=== PATIENT | male | born 1990 | race Caucasian/White ===

== ENCOUNTER 2017-03-16 15:12 | Emergency (ER) | payer OTHER ==
[~2017-03-16] VITALS: Ht 175.3 cm; Wt 113.6 kg
[~2017-03-16 15:12] MED LIST: AUGM500T34 PO; IBUPOTC PO; NORC1TAB4 PO
[2017-03-16] MEDS ORDERED: METAL LOCK LOOP XX ONE (16:06)
[2017-03-16] MEDS ORDERED: HYDR-3363 PO (16:36)
[2017-03-16 16:39] VITALS: BP 135/89
== END 2017-03-16 16:41 | disposition home or self-care (01) ==
LOC: M ED 15:12
DX: F43.0 Acute stress reaction (principal)

== ENCOUNTER 2017-12-23 22:08 | Emergency (ER) | payer OTHER ==
[2017-12-23] MEDS: GI COCKTAIL 50ML BTL(HYOSCYAMINE/MAALOX/LIDOCAINE VISCOUS)(1:3:1) PO (22:45)
== END 2017-12-24 00:25 | disposition home or self-care (01) ==
LOC: M ED 12-24 00:25
DX: J06.9 Acute upper respiratory infection, unspecified (principal); K21.9 Gastro-esophageal reflux disease without esophagitis; Z79.899 Other long term (current) drug therapy
CPT/HCPCS: 87081

== ENCOUNTER 2017-12-24 12:19 | Emergency (ER) | payer OTHER ==
[2017-12-24] MEDS: ONDANSETRON 4MG/2ML VIAL (J2405) IV (12:52)
[2017-12-24] MEDS: NS 1,000 ML IV ×2 (12:52→13:42)
[2017-12-24] MEDS: MORPHINE 2 MG/ML 1ML SYRINGE (J2270) IV (12:52)
[2017-12-24 13:17] LABS: BASO % 0.2 % (0.0-1.0); EOS % 0.1 % (0.0-3.0); HEMATOCRIT 49.8 % (42.0-52.0); HEMOGLOBIN 16.9 g/dl (13.5-17.5); IMMATURE GRANULOCYTE % 0.9 % (0-3.0); LYMPH # 0.8 10^3/uL (1.5-6.5); LYMPH % 4.1 % (24.0-44.0); MEAN CORPUSCULAR HEMOGLOBIN 28.3 pg (27.0-33.0); MEAN CORPUSCULAR HGB CONC 33.9 g/dl (32.0-36.5); MEAN CORPUSCULAR VOLUME 83.3 fl (80.0-96.0); MONO # 0.3 10^3/uL (0.0-0.8); MONO % 1.5 % (0.0-5.0); NEUTROPHILS # 17.5 10^3/uL (1.8-7.7); NEUTROPHILS % 93.2 % (36.0-66.0); PLATELET COUNT, AUTOMATED 225 10^3/uL (150-450); RED BLOOD COUNT 5.98 10^6/uL (4.30-6.10); RED CELL DISTRIBUTION WIDTH 13.7 % (11.5-14.5); WHITE BLOOD COUNT 18.7 10^3/uL (4.0-10.0)
[2017-12-24 13:34] LABS: ANION GAP 7 MEQ/L (8-16); BLOOD UREA NITROGEN 10 MG/DL (7-18); CARBON DIOXIDE LEVEL 27 MEQ/L (21-32); CHLORIDE LEVEL 105 MEQ/L (98-107); CREATININE FOR GFR 0.99 MG/DL (0.70-1.30); GLOMERULAR FILTRATION RATE > 60.0 (>60); GLUCOSE, FASTING 116 MG/DL (70-100); POTASSIUM SERUM 4.7 MEQ/L (3.5-5.1); SODIUM LEVEL 139 MEQ/L (136-145)
[2017-12-24 13:35] LABS: ALBUMIN 4.5 GM/DL (3.2-5.2); ALBUMIN/GLOBULIN RATIO 1.36 (1.00-1.93); ALKALINE PHOSPHATASE 106 U/L (45-117); ALT/SGPT 56 U/L (12-78); AST/SGOT 25 U/L (7-37); BILIRUBIN,DIRECT 0.3 MG/DL (0.0-0.2); BILIRUBIN,TOTAL 1.4 MG/DL (0.2-1.0); CALCIUM LEVEL 9.7 MG/DL (8.5-10.1); TOTAL PROTEIN 7.8 GM/DL (6.4-8.2)
[2017-12-24 13:38] LABS: LACTIC ACID SEPSIS PROTOCOL 1.6 MMOL/L (0.4-2.0)
[2017-12-24] MEDS: MORPHINE 4 MG/ML 1ML VIAL/SYRINGE (J2270) IV (13:43)
[2017-12-24] MEDS ORDERED: ISOVUE-370 76% 100ML VIAL (Q9967) As Ordered (13:57)
[2017-12-24 13:59] LABS: CK-MB VALUE MASS < 1.0 NG/ML (<3.6); CPK CREATINE PHOSPHOKINASE 113 U/L (39-308); MB/CK RELATIVE INDEX 0.88 (< OR =4); TROPONIN I < 0.02 NG/ML (< 0.10)
== END 2017-12-24 15:25 | disposition home or self-care (01) ==
LOC: M ED 12:19
DX: J02.9 Acute pharyngitis, unspecified (principal); K21.9 Gastro-esophageal reflux disease without esophagitis; K27.9 Peptic ulcer, site unspecified, unspecified as acute or chronic, without hemorrhage or perforation; R10.9 Unspecified abdominal pain; Z79.899 Other long term (current) drug therapy
CPT/HCPCS: J2270

== ENCOUNTER → 2018-01-31 | Outpatient (REF) | payer OTHER ==
[2018-01-31 13:55] LABS: CONTROL LINE HPYORI INT CTR LINE PRESENT; H PYLORI QUALITATIVE IgG NEGATIVE (NEGATIVE)
== END ==
LOC: M LAB REF 13:04
DX: K21.0 Gastro-esophageal reflux disease with esophagitis (principal)

== ENCOUNTER 2018-10-07 01:02 | Emergency (ER) | payer BC, OTHER ==
[~2018-10-07] VITALS: Ht 175.3 cm; Wt 109.1 kg
[~2018-10-07 01:02] MED LIST changes: +CLAR5TAB7 PO; +HYDR-3363 PO; +NORCOTAB PO; +RANI15TA PO; +SUCR1TA PO; +XANA0.25 PO
[2018-10-07] MEDS ORDERED: NEXI40CA PO (01:09)
[2018-10-07 01:51] LABS: INFLUENZA A AMPLIFICATION POSITIVE (NEGATIVE); INFLUENZA B AMPLIFICATION NEGATIVE (NEGATIVE)
[2018-10-07] MEDS ORDERED: OSEL75CA PO (02:12)
[2018-10-07] MEDS ORDERED: ACETAMINOPHEN 325 MG TAB PO ONE (02:30)
[2018-10-07 02:32] VITALS: BP 137/75
--- NOTE | 2018-10-07 08:00 | REP ---
PA and lateral chest: Comparison is five of 2018. The lung garzon are clear. The cardiac size is normal. The nellie, mediastinum, and skeletal structures are unremarkable. Impression: Negative PA and lateral chest. There is no interval change. Electronically Signed by Harry Thomas MD 10/07/2018 07:52 A
== END 2018-10-07 02:34 | disposition home or self-care (01) ==
LOC: M ED 01:02
DX: B34.9 Viral infection, unspecified (principal); J09.X2 Influenza due to identified novel influenza A virus with other respiratory manifestations; Z79.899 Other long term (current) drug therapy

== ENCOUNTER 2019-04-03 03:43 | Emergency (ER) | payer BC ==
[~2019-04-03] VITALS: Ht 177.8 cm; Wt 104.5 kg
[~2019-04-03 03:43] MED LIST changes: +HYDR-3715 PO; +NEXI40CA PO; -NORC1TAB4 PO; +NORC1TAB7 PO; -NORCOTAB PO; +OSEL75CA PO
[2019-04-03] MEDS ORDERED: SILVER NITRATE APPLICATOR As Ordered ONE (04:55)
[2019-04-03] MEDS ORDERED: KETOROLAC 30 MG/ML VIAL (J1885) IM ONE (06:30)
[2019-04-03] MEDS ORDERED: LIDOCAINE 5% (LIDODERM) PATCH TD ONE (06:30)
[2019-04-03] MEDS ORDERED: ACETAMINOPHEN 500 MG TAB PO ONE (06:30)
--- NOTE | 2019-04-03 08:16 | REPVR ---
EXAM: CT Lumbar Spine Without Contrast EXAM DATE/TIME: 04/03/2019 6:20 AM CLINICAL HISTORY: 29 years old, male; Low back pain; Additional Info: chronic back pain with radiculopathy TECHNIQUE: Imaging protocol: Computed tomography images of the lumbar spine without contrast. Coronal and sagittal reformatted images were created and reviewed. Radiation optimization: All CT scans at this facility use at least one of these dose optimization techniques: automated exposure control; mA and/or kV adjustment per patient size (includes targeted exams where dose is matched to clinical indication); or iterative reconstruction. COMPARISON: No relevant prior studies available. FINDINGS: Limitations: Examination is limited by body habitus. Vertebrae: No acute fracture. Normal alignment. Rudimentary ribs at T12. Incidental partial sacralization of the L5 vertebral body. Left anterolateral paravertebral ossification at L4-L5. L1-L2: No disc herniation. No spinal stenosis. No neural foraminal narrowing. L2-L3: No disc herniation. No spinal stenosis. No neural foraminal narrowing. L3-L4: No disc herniation. No spinal stenosis. No neural foraminal narrowing. L4-L5: No disc herniation. No spinal stenosis. No neural foraminal narrowing. L5-S1: No disc herniation. No spinal stenosis. No neural foraminal narrowing. Soft tissues: Unremarkable. IMPRESSION: 1. No acute fracture. 2. Incidental findings as described. Electronically signed by: Shwetha Pryor On 04/03/2019 08:16:02 AM
[2019-04-03] MEDS ORDERED: CYCL10TA PO (08:32)
[2019-04-03] MEDS ORDERED: IBUP80TA PO (08:33)
[2019-04-03 09:00] VITALS: BP 128/78
[2019-04-03] MEDS ORDERED: **NOTE PATIENT COMMENT** MISC XX SCH (21:00)
== END 2019-04-03 09:05 | disposition home or self-care (01) ==
LOC: M ED 03:43
DX: M54.5 Low back pain (principal); G89.29 Other chronic pain; K21.9 Gastro-esophageal reflux disease without esophagitis; F41.9 Anxiety disorder, unspecified; F90.9 Attention-deficit hyperactivity disorder, unspecified type; K27.9 Peptic ulcer, site unspecified, unspecified as acute or chronic, without hemorrhage or perforation; Z87.442 Personal history of urinary calculi; Z79.899 Other long term (current) drug therapy
CPT/HCPCS: 72131; 96372; 99283; J1885

== ENCOUNTER 2019-04-10 17:51 | Emergency (ER) | payer BC ==
[~2019-04-10] VITALS: Ht 177.8 cm; Wt 108.6 kg
[~2019-04-10 17:51] MED LIST changes: +CYCL10TA PO; +IBUP80TA PO
[2019-04-10 17:52] VITALS: BP 145/83
[2019-04-10] MEDS ORDERED: DIAZ5TAB (17:58)
[2019-04-10] MEDS ORDERED: METH4PACK (17:58)
[2019-04-10] MEDS ORDERED: LIDO1PAD (17:58)
== END 2019-04-10 18:46 | disposition left against medical advice (07) ==
LOC: M ED 17:51
DX: Z53.21 Procedure and treatment not carried out due to patient leaving prior to being seen by health care provider (principal)

== ENCOUNTER → 2019-12-24 | Outpatient (CLI) | payer BC ==
[~2019-12-24] MED LIST changes: +CYCL-707 PO; -CYCL10TA PO; +DIAZ5TAB; +LIDO1PAD; +METH4PACK
--- NOTE | 2019-12-24 19:37 | REP ---
Clinical: Pain centered at the fifth metatarsal area Technique: AP, lateral, bilateral oblique views right foot . Findings: The osseous structures and joint spaces are intact and normal. There is no evidence for acute fracture or dislocation. Surrounding soft tissues are unremarkable. No subcutaneous emphysema or radiodense foreign body. Impression: Age-appropriate right foot examination. No acute fracture or dislocation. Electronically Signed by René Wolf MD 12/24/2019 07:28 P
== END ==
LOC: M WUC 09:30
PROVIDERS: ATTEND Physician Assistant
DX: M79.671 Pain in right foot (principal)

== ENCOUNTER → 2020-07-21 | Outpatient (CLI) | payer SELFPAY | LOC: M LABSMTC 19:23 | PROVIDERS: ATTEND Pediatrics | DX: Z11.59 Encounter for screening for other viral diseases (principal) ==

== ENCOUNTER 2020-07-25 10:07 | Emergency (ER) | payer BC ==
[~2020-07-25] VITALS: Ht 177.8 cm; Wt 107.9 kg
[2020-07-25] MEDS ORDERED: COMBIVENT RESPIMAT 100-20MCG INHALER 4GM INH ONE (11:30)
[2020-07-25] MEDS ORDERED: ACETAMINOPHEN TAB 650MG DOSE (2X325MG) PO ONE (11:30)
--- NOTE | 2020-07-25 11:44 | REP ---
INDICATION: DYSPNEA/COUGH. COMPARISON: Comparison chest x-ray October 07, 2018. TECHNIQUE: Portable upright AP chest radiograph. FINDINGS: The lungs are well inflated and free of infiltrate. Pleural angles are sharp. Heart size is normal. Pulmonary vasculature is not increased. Monitoring electrodes are seen. IMPRESSION: No active disease. <Electronically signed by Ky Pichardo > 07/25/20 [id number]
[2020-07-25 11:51] LABS: VENOUS BASE EXCESS -0.7 (-2.0-2.0); VENOUS HCO3 28.6 MEQ/L (23.0-27.0); VENOUS O2 SATURATION 61.7 % (60.0-80.0); VENOUS PARTIAL PRESSURE CO2 65.3 mmHg (38.0-50.0); VENOUS PARTIAL PRESSURE O2 35.1 mmHg (30.0-50.0); VENOUS STANDARD HCO3 22.7 MEQ/L; VENOUS TOTAL CO2 30.6 MEQ/L (24.0-28.0)
[2020-07-25 11:58] LABS: BASO # 0.1 10^3/uL (0.0-0.2); EOS # 0.1 10^3/uL (0.0-0.5); EOS % 0.7 % (0.0-3.0); HEMATOCRIT 52.1 % (42.0-52.0); HEMOGLOBIN 17.4 g/dl (13.5-17.5); LYMPH # 1.5 10^3/uL (1.5-5.0); LYMPH % 21.4 % (24.0-44.0); MEAN CORPUSCULAR HEMOGLOBIN 27.9 pg (27.0-33.0); MEAN CORPUSCULAR HGB CONC 33.4 g/dl (32.0-36.5); MEAN CORPUSCULAR VOLUME 83.6 fl (80.0-96.0); MONO # 0.6 10^3/uL (0.0-0.8); NEUTROPHILS # 4.7 10^3/uL (1.5-8.5); NEUTROPHILS % 66.3 % (36.0-66.0); PLATELET COUNT, AUTOMATED 225 10^3/uL (150-450); RED BLOOD COUNT 6.23 10^6/uL (4.30-6.10)
[2020-07-25] MEDS ORDERED: COMBAER6 INH (11:58)
[2020-07-25] MEDS ORDERED: PROAAER10 INH (11:58)
[2020-07-25 12:29] LABS: BLOOD UREA NITROGEN 15 MG/DL (7-18); CALCIUM LEVEL 9.4 MG/DL (8.5-10.1); CARBON DIOXIDE LEVEL 29 MEQ/L (21-32); CHLORIDE LEVEL 106 MEQ/L (98-107); CREATININE FOR GFR 1.02 MG/DL (0.70-1.30); GLOMERULAR FILTRATION RATE > 60.0 (>60); GLUCOSE, FASTING 84 MG/DL (70-100); POTASSIUM SERUM 4.5 MEQ/L (3.5-5.1); SODIUM LEVEL 137 MEQ/L (136-145)
[2020-07-25 12:32] VITALS: BP 147/71
== END 2020-07-25 12:34 | disposition home or self-care (01) ==
LOC: M ED 10:07
DX: B34.9 Viral infection, unspecified (principal); R51.9 Headache, unspecified; Z20.828 Contact with and (suspected) exposure to other viral communicable diseases; F17.200 Nicotine dependence, unspecified, uncomplicated

== ENCOUNTER 2021-07-16 16:03 | Emergency (ER) | payer BC ==
[~2021-07-16] VITALS: Ht 177.8 cm; Wt 116.0 kg
[~2021-07-16 16:03] MED LIST changes: +COMBAER6 INH; +PROAAER10 INH
[2021-07-16 16:08] VITALS: BP 145/90
[2021-07-16] MEDS ORDERED: AZIT-12 (16:13)
--- OUTSIDE RECORDS SUMMARY | 2021-07-16 16:15 | CCD ---
Author Author [facility] Organization [facility] Address Unknown Phone Unavailable Care Team Providers Care [employer] Consultant Name Role Phone Maring, Ayush PA Unavailable Unavailable Maring, Ayush PA Unavailable Unavailable Maring, Ayush PA Unavailable Unavailable Maring, Ayush PA Unavailable Unavailable Maring, Ayush PA Unavailable Unavailable Maring, Ayush PA Unavailable Unavailable Maring, Ayush PA Unavailable Unavailable Maring, Ayush PA Unavailable Unavailable Maring, Ayush PA Unavailable Unavailable Maring, Ayush PA Unavailable Unavailable Maring, Ayush PA Unavailable Unavailable Maring, Ayush PA Unavailable Unavailable Maring, Ayush PA Unavailable Unavailable Maring, Ayush PA Unavailable Unavailable Maring, Ayush PA Unavailable Unavailable Maring, Ayush PA Unavailable Unavailable Sarah Yancey PA-C Unavailable Unavailable Sarah Yancey PA-C Unavailable Unavailable Sarah Yancey PA-C Unavailable Unavailable Sarah Yancey PA-C Unavailable Unavailable Yancey, M Christopher PA-C Unavailable Unavailable Yancey, M Christopher PA-C Unavailable Unavailable Yancey, M Christopher PA-C Unavailable Unavailable Yancey, M Christopher PA-C Unavailable Unavailable Yancey, M Christopher PA-C Unavailable Unavailable Yancey, M Christopher PA-C Unavailable Unavailable Yancey, M Christopher PA-C Unavailable Unavailable Yancey, M Christopher PA-C Unavailable Unavailable Yancey, M Christopher PA-C Unavailable Unavailable Yancey, M Christopher PA-C Unavailable Unavailable Yancey, M Christopher PA-C Unavailable Unavailable Yancey, M Christopher PA-C Unavailable Unavailable Yancey, M Christopher PA-C Unavailable Unavailable Yancey, M Christopher PA-C Unavailable Unavailable Yancey, M Christopher PA-C Unavailable Unavailable Yancey, M Christopher PA-C Unavailable Unavailable Yancey, M Christopher PA-C Unavailable Unavailable Yancey, M Christopher PA-C Unavailable Unavailable Yancey, M Christopher PA-C Unavailable Unavailable Yancey, M Christopher PA-C Unavailable Unavailable Yancey, M Christopher PA-C Unavailable Unavailable Yancey, M Christopher PA-C Unavailable Unavailable Re-disclosure Warning The records that you are about to access may contain information from federally-assisted alcohol or drug abuse programs. If such information is present, then the following federally mandated warning applies: This information has been disclosed to you from records protected by federal confidentiality rules (42 CFR part 2). The federal rules prohibit you from making any further disclosure of this information unless further disclosure is expressly permitted by the written consent of the person to whom it pertains or as otherwise permitted by 42 CFR part 2. A general authorization for the release of medical or other information is NOT sufficient for this purpose. The Federal rules restrict any use of the information to criminally investigate or prosecute any alcohol or drug abuse patient.The records that you are about to access may contain highly sensitive health information, the redisclosure of which is protected by Article 27-F of the [place] State Public Health law. If you continue you may have access to information: Regarding HIV / AIDS; Provided by facilities licensed or operated by the [facility] Office of Mental Health; or Provided by the [facility] Office for People With Developmental Disabilities. If such information is present, then the following [facility] mandated warning applies: This information has been disclosed to you from confidential records which are protected by state law. State law prohibits you from making any further disclosure of this information without the specific written consent of the person to whom it pertains, or as otherwise permitted by law. Any unauthorized further disclosure in violation of state law may result in a fine or longterm sentence or both. A general authorization for the release of medical or other information is NOT sufficient authorization for further disc losure. Family History Family Member Name Family Member Gender Family Member Status Date o f Status Description Data Source(s) Unknown Unknown Problem [facility] ([facility] MGM Encounters Encounter Providers Location Date Indications Data Source(s ) Outpatient Attender: Quincy Yancey PA-C 07/12/2021 07:06:50 AM EST - 07/12/2021 08:00:21 AM EST [facility] ([facility]) Outpatient Attender: Ayush MELARA 11/10/19 08:37:43 AM EDT - 11/09/2020 09:09:15 AM EDT [facility] ([facility] ) Immunizations Vaccine Date Status Description Data Source(s) COVID-19 VACCINE Yehuda 12/27/2020 12:00:00 AM EDT completed [facility] Vaccine Series Complete: YESThis Data wa s Submitted to [facility] Via [employer] [facility]. Medications Medication Brand Name Start Date Product Form Dose Route Admi nistrative Instructions Pharmacy Instructions Status Indications Reaction Description Data Source(s) 40 mg 11/09/2020 12:00:00 AM EDT capsule,delayed release (DR/EC) 30 TAKE ONE CAPSULE BY MOUTH ONCE DAILY EVERY MORNING TAKE ONE CAPSULE BY MOUTH ONCE DAILY EVERY MORNING SOLD: 11/09/2020 [facility] 20-100 mcg/actuation 07/25/2020 12:00:00 AM EST mist 8 INHALE ONE PUFF BY MOUTH THREE TIMES A DAY INHALE ONE PUFF BY MOUTH THREE TIMES A DAY SOLD: 07/25/2020 [facility] 90 mcg/actuation 07/25/2020 12:00:00 AM EST HFA aerosol inha ler 8 INHALE 2 PUFFS BY MOUTH EVERY 4-6 HOURS NEEDED FOR WHEEZING INHALE 2 PUFFS BY MOUTH EVERY 4-6 HOURS NEEDED FOR WHEEZING SOLD: 07/25/2020 [facility] Insurance Providers Payer name Policy type / Coverage type Policy ID Covered libertarian ID Covered libertarian's relationship to franklin Policy [place] Plan Information [employer] (pr) Medigap Part B [id number] Family Dependent [id number] [facility]) Workers Compensation [id number] Self [id number] [facility] Workers Compensation [id number] Self [id number] [facility] Workers Compensation [id number] Self [id number] [place] Trad/MX Medigap Part B [id number] Self [id number] BS [place] Trad/MX Commercial [id number] Self 332 BS [facility] Medigap Part B [id number] T [id number] POM[employer] [id number] Chi [id number] POMCO [id number] Chi [id number] Umr (pr) Commercial [id number] Self [id number] Blue Cross Blue Shield P [id number] SELF [id number] BS Agustin Trad/MX Commercial [id number] Self [id number] [employer] Blue [employer] and Blue Shield [place] Blue Cross/B lue Shield [id number] Self [id number] [facility] 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 Family Dependent [id number] [employer] Ppo Commercial [id number] Family Dependent [id number] [employer] Ppo Commercial [id number] Family Dependent [id number] [employer] Ppo Commercial [id number] Family Dependent [id number] [employer] (pr) Commercial [id number] Family Dependent [place] Ppo Commercial [id number] Family Dependent 91 0 [employer] PPO O [id number] S [id number] [employer] Commercial [id number] Family Dependent BCBS [place] PPO 302/307 [id number] EXCELL[place] BCBS P [id number] C [place] [id number] BCBS [place]AT[place] PPO 302/307 [id number] SP [id number] P UNAVAILABLE UNAVAILA BLE EXCELLUS BCBS B [id number] S [id number] [id number] SELF PAY ONLY [id number] SP [id number] EXCELLUS BCBS B [id number] C VYA [id number] BCBS [place] WATN PPO 302/307 [id number] SP [id number] [facility] [id number] MO2 [id number] [facility] [id number] Family Dependent [id number] Umr (pr) Commercial [id number] Family Dependent [id number] [employer] (pr) [facility] Part B [id number] BS [place] Medigap Part B [id number] Self T [id number] [employer]/Umr (Old) Commercial [id number] Family Dependent [id number] POMCO [id number] MO2 [id number] [employer] (pr) Commercial [id number] [employer] Commercial [id number] Family Dependent [id number] [employer] Commercial [id number] Family Dependent [id number] Problems, Conditions, and Diagnoses No Information Surgeries/Procedures No Information Results ID Date Data Source [id number] 07/14[facility] 12:00:00 [facility] Value Range Interpretation Code Description Data Katelyn rce(s) Supporting Document(s) SARS-CoV2 Rapid Antigen Positive [facility] This lab was ordered by [facility] and reported by [facility]. ID Date Data Source [id number] 11/10/2020 12:00:00 AM EDT [facility] Name Value Range Interpretation Code Description Data Katelyn rce(s) Supporting Document(s) SARS-CoV2 Rapid Antigen Negative [facility] This lab was ordered by [facility] and reported by [facility]. ID Date Data Source [id number] 07/25/2020 11:35:00 AM EST [facility] ([facility]) Name Value Range Interpretation Code Description Data Katelyn rce(s) Supporting Document(s) Venous PH 7.260 units 7.330-7.430 [facility] ([facility]) Venous Partial Pressure Co2 65.3 mmHg 38.0-50.0 [facility] ([facility]) Venous Partial Pressure O2 35.1 mmHg 30.0-50.0 [facility] ([facility]) Venous Base Excess -0.7 [facility] ([facility]) Venous Hco3 28.6 meq/L 23.0-27.0 [facility] ([facility]) Venous Total Co2 30.6 meq/L 24.0-28.0 [facility] Venous O2 Saturation 61.7 % 60.0-80.0 [facility] ([facility]) Venous Standard Hco3 22.7 meq/L [facility] ( [facility]) ID Date Data Source [id number] 07/25/2020 11:17:00 AM EST [facility] ([facility]) Name Value Range Interpretation Code Description Data Katelyn rce(s) Supporting Document(s) Blood Urea Nitrogen 15 mg/dL 7-18 [facility] ([facility]) Creatinine For GFR 1.02 mg/dL 0.70-1.30 [facility] ([facility]) Glucose, Fasting 84 mg/dL 70-100 [facility] ([facility]) Glomerular Filtration Rate Laboratory test result [facility] <content>Units are mL/min/1.73 m2</content>
<content></content>
<content>Chronic Kidney Disease Staging per NKF:</content>
<content></content>
<content>Stage I & II GFR >=60 Normal to Mildly Decreased</content>
<content>Stage III GFR 30-59 Moderately Decreased</content>
<content>Stage IV GFR 15-29 Severely Decreased</content>
<content>Stage V GFR <15 Very Little GFR Left</content>
<content>ESRD GFR <15 on CONFERENCE AND EVENT ORGANISER</content>
<content></content> Sodium Level 137 meq/L 136-145 [facility] ([facility]) Potassium Serum 4.5 meq/L 3.5-5.1 [facility] Anion Gap 2 meq/L 8-16 [facility]) Chloride Level 106 meq/L 98-107 [facility] ([facility]) Carbon Dioxide Level 29 meq/L 21-32 [facility] ( [facility] Calcium Level 9.4 mg/dL 8.5-10.1 [facility] ([facility]) ID Date Data Source [id number] 07/25/2020 11:17:00 AM EST [facility] ([facility]) Name Value Range Interpretation Code Description Data Katelyn rce(s) Supporting Document(s) White Blood Count 7.0 10 4.0-10.0 [facility] ([facility]) Red Blood Count 6.23 10 4.30-6.10 [facility] ([facility]) Hematocrit 52.1 % 42.0-52.0 [facility] [facility]) Hemoglobin 17.4 g/dL 13.5-17.5 [facility] [facility] Mean Corpuscular Hemoglobin 27.9 pg 27.0-33.0 IA DENT ([facility]) Mean Corpuscular HGB Conc 33.4 g/dL 32.0-36.5 MEDE NT ([facility]) Mean Corpuscular Volume 83.6 fl 80.0-96.0 [facility] ([facility]) Platelet Count, Automated 225 10 150-450 [facility] NT ([facility]) Neutrophils % 66.3 % 36.0-66.0 [facility] ([facility]) Red Cell Distribution Width 13.2 % 11.5-14.5 IA DENT ([facility]) Eos % 0.7 % 0.0-3.0 [facility]) [place] % 9.0 % 0.0-5.0 [facility] Lymph % 21.4 % 24.0-44.0 [facility]) Baso % 1.0 % 0.0-1.0 [facility]) Nucleated Red Blood Cell % 0.0 % 0-0 MED ENT ([facility]) Immature Granulocyte % 1.6 % 0-3.0 [facility] ([facility]) Neutrophils # 4.7 10 1.5-8.5 [facility] ([facility]) Lymph # 1.5 10 1.5-5.0 [facility]) [place] # 0.6 10 0.0-0.8 [facility]) Eos # 0.1 10 0.0-0.5 [facility]) Baso # 0.1 10 0.0-0.2 [facility]) ID Date Data Source [id number] 07/25/2020 12:00:00 AM EST [facility] Name Value Range Interpretation Code Description Data Katelyn rce(s) Supporting Document(s) SARS coronavirus 2 RNA [Presence] in Res piratory specimen by RAVI with probe detection [facility] This lab was ordered by [facility] and reported by [employer]. ID Date Data Source [id number] 07/21/2020 12:00:00 AM EST [facility] Name Value Range Interpretation Code Description Data Katelyn rce(s) Supporting Document(s) 2019-nCoV RNA XXX RAVI+probe-Imp [facility] This lab was ordered by [facility] and reported by [facility]. Procedure Social History No Information
[2021-07-16 17:33] VITALS: O2SAT 98
[2021-07-16] MEDS ORDERED: GI COCKTAIL 50ML BTL(HYOSCYAMINE/MAALOX/LIDOCAINE VISCOUS)(1:3:1) PO ONE (17:45)
--- OUTSIDE RECORDS SUMMARY | 2021-07-16 19:23 | CCD ---
Author Author [facility] Organization [facility] Address Unknown Phone Unavailable Care Team Providers Care E Learning Specialist Name Role Phone Maring, Ayush PA Unavailable [...] Unavailable Unavailable Sarah Yancey PA-C Unavailable Unavailable aSrah Yancey PA-C Unavailable Unavailable Yancey, M Christopher [...] is protected by Article 27-F of the [place] State Public Health law. If you continue you may have access to information: Regarding HIV / AIDS; Provided by facilities licensed or operated by the [facility] Office of Mental Health; or Provided by the [facility] Office for People With Developmental Disabilities. If such information is present, then the following [facility] mandated warning applies: This information [...] law may result in a fine or skilled nursing sentence or both. A general authorization for [...] EST - 07/12/2021 08:00:21 AM EST [facility] ([facility]) Outpatient Attender: Ayush MELARA 11/10/19 08:37:43 AM EDT - 11/09/2020 09:09:15 AM EDT [facility] ([facility] ) Immunizations Vaccine Date Status Description Data Source(s) COVID-19 VACCINE Yehuda 12/27/2020 12:00:00 AM EDT completed [facility] Vaccine Series Complete: YESThis Data wa s Submitted to [facility] Via [employer]. Medications Medication Brand Name Start Date Product [...] type / Coverage type Policy ID Covered constitution party ID Covered constitution party's relationship to franklin Policy [place] Plan Information [employer] (pr) Medigap Part B [id number] Family Dependent [id number] [facility]) Workers Compensation [id number] Self [id number] [facility] Workers Compensation [id number] Self [id number] [facility] Workers Compensation [id number] Self [id number] BS [place] Trad/MX Medigap Part B [id number] Self [id number] BS [place]oa Trad/MX Commercial [id number] Self 332 BS [facility] Medigap Part B [id number] T [id number] POMCO [id number] Chi [id number] POMCO [id number] Chi [id number] Umr (pr) Commercial [id number] Self [id number] Blue Cross Blue Shield P [id number] SELF [id number] BS Agustin Trad/MX Commercial [id number] Self [id number] [employer] and Blue [employer] - [place] Blue Cross/B lue Shield [id number] Self [id number] [facility] 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 [id number] Family Dependent [id number] [employer] Ppo Commercial [id number] [id number] Family Dependent [id number] [employer] Ppo Commercial [id number] [id number] Family Dependent [id number] [employer] Ppo Commercial [id number] [id number] Family Dependent [id number] [employer] (pr) Commercial [id number] Family Dependent [place] Ppo Commercial [id number] Family Dependent 91 0 POMCO PPO O [id number] S [id number] [employer] Commercial [id number] Family Dependent BCBS [place] PPO 302/307 [id number] [id number] [employer]CE[place] BCBS P [id number] [place] [id number] BCBS [place] PPO 302/307 [id number] SP [id number] P UNAVAILABLE UNAVAILA BLE [employer]CELLUS BCBS B [id number] S [id number] [id number] SELF PAY ONLY [id number] SP [id number] EXCELLUS BCBS B [id number] C VYA [id number] BCBS [place] PPO 302/307 [id number] SP [id number] [facility] [id number] MO2 [id number] Pom[employer]/Umr (Old) [facility] Part B [id number] Family Dependent [id number] Umr (pr) Commercial [id number] Family Dependent [id number] [place] (pr) [facility] Part B [id number] 55.0 [id number] BS [place] Medigap Part B [id number] Self T [id number] Pom[employer]/Umr (Old) Commercial [id number] [id number] [id number] Family Dependent [id number] POMCO [id number] MO2 [id number] [employer] (pr) Commercial [id number] [employer] Commercial [id number] [id number] Family Dependent [id number] [employer] Commercial [id number] [id number] [id number] Family Dependent [id number] Problems, Conditions, and Diagnoses No Information Surgeries/Procedures No Information Results ID Date Data Source [id number] 07/14/2021 12:00:00 AM EST [facility] Name Value Range Interpretation Code Description Data Katelyn rce(s) Supporting Document(s) SARS-CoV2 Rapid Antigen Positive [facility] This lab was ordered by [facility] and reported by [facility]. ID Date Data Source [id number] 11/10/2020 12:00:00 AM EDT [facility] Name Value Range Interpretation Code Description Data Katelyn rce(s) Supporting Document(s) SARS-CoV2 Rapid Antigen Negative [facility] This lab was ordered by [facility] and reported by [facility]. ID Date Data Source [id number] 07/25/2020 11:35:00 AM EST [facility] ([facility]) Name Value Range Interpretation Code Description Data Katelyn rce(s) Supporting Document(s) Venous PH 7.260 units 7.330-7.430 [facility] ([facility]) Venous Partial Pressure Co2 65.3 mmHg 38.0-50.0 [facility] ([facility]) Venous Partial Pressure O2 35.1 mmHg 30.0-50.0 [facility] ([facility]) Venous Base Excess -0.7 [facility] ([facility]) Venous Hco3 28.6 meq/L 23.0-27.0 [facility] ([facility]) Venous Total Co2 30.6 meq/L 24.0-28.0 [facility] Venous O2 Saturation 61.7 % 60.0-80.0 [facility] ([facility]) Venous Standard Hco3 22.7 meq/L [facility] ( [facility]) ID Date Data Source [id number] 07/25/2020 11:17:00 AM EST [facility] ([facility]) Name Value Range Interpretation Code Description Data Katelyn rce(s) Supporting Document(s) Blood Urea Nitrogen 15 mg/dL 7-18 [facility] ([facility]) Creatinine For GFR 1.02 mg/dL 0.70-1.30 [facility] ([facility]) Glucose, Fasting 84 mg/dL 70-100 [facility] ([facility]) Glomerular Filtration Rate Laboratory test result [facility] <content>Units are mL/min/1.73 m2</content>
<content></content>
<content>Chronic Kidney Disease Staging per NKF:</content>
<content></content>
<content>Stage I & II GFR >=60 Normal to Mildly Decreased</content>
<content>Stage III GFR 30-59 Moderately Decreased</content>
<content>Stage IV GFR 15-29 Severely Decreased</content>
<content>Stage V GFR <15 Very Little GFR Left</content>
<content>ESRD GFR <15 on C D STRIPPER</content>
<content></content> Sodium Level 137 meq/L 136-145 [facility] ([facility]) Potassium Serum 4.5 meq/L 3.5-5.1 [facility] Anion Gap 2 meq/L 8-16 [facility] ([facility]) Chloride Level 106 meq/L 98-107 [facility] ([facility]) Carbon Dioxide Level 29 meq/L 21-32 [facility] Calcium Level 9.4 mg/dL 8.5-10.1 [facility] ([facility]) ID Date Data Source [id number] 07/25/2020 11:17:00 AM EST [facility] ([facility]) Name Value Range Interpretation Code Description Data Katelyn rce(s) Supporting Document(s) White Blood Count 7.0 10 4.0-10.0 [facility] ([facility]) Red Blood Count 6.23 10 4.30-6.10 [facility] ([facility]) Hematocrit 52.1 % 42.0-52.0 [facility] ([place]) Hemoglobin 17.4 g/dL 13.5-17.5 [facility] Mean Corpuscular Hemoglobin 27.9 pg 27.0-33.0 FL DENT ([facility]) Mean Corpuscular HGB Conc 33.4 g/dL 32.0-36.5 MEDE NT ([facility]) Mean Corpuscular Volume 83.6 fl 80.0-96.0 [facility] ([facility]) Platelet Count, Automated 225 10 150-450 [facility] NT ([facility]) Neutrophils % 66.3 % 36.0-66.0 [facility] ([facility]) Red Cell Distribution Width 13.2 % 11.5-14.5 FL [facility] ([facility]) Eos % 0.7 % 0.0-3.0 [facility]) [place] % 9.0 % 0.0-5.0 [facility]) Lymph % 21.4 % 24.0-44.0 [facility]) Baso % 1.0 % 0.0-1.0 [facility]) Nucleated Red Blood Cell % 0.0 % 0-0 MED ENT ([facility]) Immature Granulocyte % 1.6 % 0-3.0 [facility] ([facility]) Neutrophils # 4.7 10 1.5-8.5 [facility]) Lymph # 1.5 10 1.5-5.0 [facility]) [place] # 0.6 10 0.0-0.8 [facility]) Eos # 0.1 10 0.0-0.5 [facility]) Baso # 0.1 10 0.0-0.2 [facility]) ID Date Data Source [id number] 07/25/2020 12:00:00 AM EST [facility] Name Value Range Interpretation Code Description Data Katelyn rce(s) Supporting Document(s) SARS coronavirus 2 RNA [Presence] in Res piratory specimen by RAVI with probe detection [facility] This lab was ordered by [facility] and reported by [employer]. ID Date Data Source [id number] 07/21/2020 12:00:00 AM EST [facility] Name Value Range Interpretation Code Description Data Katelyn rce(s) Supporting Document(s) 2019-nCoV RNA XXX RAVI+probe-Imp [facility] This lab was ordered by [facility] and reported by [facility]. Procedure Social History No Information
[2021-07-16] MEDS ORDERED: ISOVUE-370 76% 100ML VIAL As Ordered ONE (19:48)
[2021-07-16 19:51] LABS: BASO % 0.6 % (0.0-1.0); EOS % 0.6 % (0.0-3.0); HEMATOCRIT 49.5 % (42.0-52.0); HEMOGLOBIN 16.8 g/dl (13.5-17.5); LYMPH # 1.9 10^3/uL (1.5-5.0); LYMPH % 26.5 % (24.0-44.0); MEAN CORPUSCULAR HEMOGLOBIN 28.4 pg (27.0-33.0); MEAN CORPUSCULAR HGB CONC 33.9 g/dl (32.0-36.5); MEAN CORPUSCULAR VOLUME 83.8 fl (80.0-96.0); MONO # 0.6 10^3/uL (0.0-0.8); MONO % 8.7 % (2.0-8.0); NEUTROPHILS # 4.5 10^3/uL (1.5-8.5); NEUTROPHILS % 62.8 % (36.0-66.0); PLATELET COUNT, AUTOMATED 257 10^3/uL (150-450); RED BLOOD COUNT 5.91 10^6/uL (4.30-6.10); WHITE BLOOD COUNT 7.1 10^3/uL (4.0-10.0)
[2021-07-16] MEDS ORDERED: FAMO20TA PO (20:45)
--- NOTE | 2021-07-16 22:03 | REPVR ---
PROCEDURE INFORMATION: Exam: CTA Chest With Contrast Exam date and time: 07/16/2021 7:48 PM Age: 31 years old Clinical indication: Shortness of breath; Additional info: Rule out pe TECHNIQUE: Imaging protocol: Computed tomographic angiography of the chest with contrast. 3D rendering (Not supervised by radiologist): MIP and/or 3D reconstructed images were created by the technologist. Radiation optimization: All CT scans at this facility use at least one of these dose optimization techniques: automated exposure control; mA and/or kV adjustment per patient size (includes targeted exams where dose is matched to clinical indication); or iterative reconstruction. Contrast material: ISOVUE 370; Contrast volume: 75 ml; Contrast route: INTRAVENOUS (IV); COMPARISON: CT ANGIO CHEST 12/24/2017 1:58 PM FINDINGS: Pulmonary arteries: Suboptimal contrast opacification in the upper lobes of both lungs. The main pulmonary artery is nondilated. No central pulmonary embolism is seen. There is hypoenhancement in segmental pulmonary arteries in the left upper lobe (image 66, series 401) and right upper lobe (image 72 of series 401). No lower lobe pulmonary emboli are seen. Aorta: Unremarkable. No aortic aneurysm. No aortic dissection. Lungs: Noncalcified 5 mm nodule in the superior segment of the right lower lobe is unchanged. Lungs are otherwise clear. No airspace infiltrates or new masses. Pleural spaces: No pneumothorax. No pleural effusion. Heart: Unremarkable. No cardiomegaly. No pericardial effusion. Lymph nodes: Unremarkable. No enlarged lymph nodes. Bones/joints: Unremarkable. No acute fracture. Soft tissues: Unremarkable. IMPRESSION: 1. Hypoenhancement in segmental pulmonary arteries in both upper lobes. This may be artifactual related to suboptimal arterial contrast enhancement. Small upper lobe pulmonary embolism is not excluded however. No central pulmonary embolism or lower lobe emboli are seen. 2. Normal heart size. No signs of heart strain Electronically signed by: Luis Lozano On 07/16/2021 22:02:52 PM
--- NOTE | 2021-07-17 01:09 | ECGEPIP ---
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
== END 2021-07-17 00:30 | disposition home or self-care (01) ==
LOC: M ED 16:03
DX: U07.1 COVID-19 (principal); R06.02 Shortness of breath; K21.9 Gastro-esophageal reflux disease without esophagitis; Z79.899 Other long term (current) drug therapy
CPT/HCPCS: 36415; 71275; 80047; 83735; 84484; 85025; 85379; 93005; 99284; Q9967

== ENCOUNTER → 2022-04-14 | Outpatient (CLI) | payer BC ==
[~2022-04-14] MED LIST changes: +AZIT-12; +FAMO20TA PO
[2022-04-14 10:31] LABS: BASO # 0.1 10^3/uL (0.0-0.2); EOS # 0.1 10^3/uL (0.0-0.5); EOS % 1.8 % (0.0-3.0); HEMATOCRIT 51.4 % (42.0-52.0); HEMOGLOBIN 17.3 g/dl (13.5-17.5); LYMPH # 1.4 10^3/uL (1.5-5.0); LYMPH % 27.6 % (24.0-44.0); MEAN CORPUSCULAR HEMOGLOBIN 28.8 pg (27.0-33.0); MEAN CORPUSCULAR HGB CONC 33.7 g/dl (32.0-36.5); MEAN CORPUSCULAR VOLUME 85.7 fl (80.0-96.0); MONO # 0.5 10^3/uL (0.0-0.8); MONO % 9.8 % (2.0-8.0); PLATELET COUNT, AUTOMATED 240 10^3/uL (150-450); WHITE BLOOD COUNT 5.1 10^3/uL (4.0-10.0)
[2022-04-14 10:48] LABS: ALT/SGPT 28 U/L (12-78); BILIRUBIN,TOTAL 0.9 MG/DL (0.2-1.0); BLOOD UREA NITROGEN 16 MG/DL (7-18); CALCIUM LEVEL 8.7 MG/DL (8.5-10.1); CARBON DIOXIDE LEVEL 28 MEQ/L (21-32); CHLORIDE LEVEL 108 MEQ/L (98-107); CHOLESTEROL LEVEL 204 MG/DL (<200); CHOLESTEROL RISK RATIO 3.849 (<5); CREATININE FOR GFR 0.93 MG/DL (0.70-1.30); FREE T4 1.05 NG/DL (0.76-1.46); GLOMERULAR FILTRATION RATE > 60.0 (>60); GLUCOSE, FASTING 90 MG/DL (70-100); HDL CHOLESTEROL 53 MG/DL (>40); LDL CHOLESTEROL 135 MG/DL (<100); NON-HDL-C 151 MG/DL; POTASSIUM SERUM 4.4 MEQ/L (3.5-5.1); SODIUM LEVEL 139 MEQ/L (136-145); THYROID STIMULATING HORMONE 0.565 uIU/ML (0.358-3.740); TOTAL PROTEIN 6.8 GM/DL (6.4-8.2); TRIGLYCERIDES LEVEL 82 MG/DL (<150)
[2022-04-15 23:10] LABS: TESTOSTERONE FREE (DIRECT) 16.8 pg/mL (8.7-25.1)
== END ==
LOC: M PLALAB 07:08
PROVIDERS: ATTEND Physician Assistant
DX: K21.00 Gastro-esophageal reflux disease with esophagitis, without bleeding (principal); Z68.36 Body mass index [BMI] 36.0-36.9, adult; R53.83 Other fatigue

== ENCOUNTER 2022-05-03 14:22 | Emergency (ER) | payer BC ==
[~2022-05-03] VITALS: Ht 177.8 cm; Wt 102.3 kg
[2022-05-03] MEDS ORDERED: CEPH250T PO (17:25)
[2022-05-03 17:34] VITALS: BP 130/68
[2022-05-04 18:22] LABS: GC DNA AMPLIFICATION NEGATIVE (NEGATIVE)
== END 2022-05-03 17:37 | disposition home or self-care (01) ==
LOC: M ED 16:45
DX: N43.3 Hydrocele, unspecified (principal); R31.29 Other microscopic hematuria; K27.9 Peptic ulcer, site unspecified, unspecified as acute or chronic, without hemorrhage or perforation; F41.9 Anxiety disorder, unspecified; F90.9 Attention-deficit hyperactivity disorder, unspecified type; Z87.442 Personal history of urinary calculi; Z79.899 Other long term (current) drug therapy

== ENCOUNTER → 2024-04-18 | Outpatient (REF) | payer BC ==
[~2024-04-18] MED LIST changes: +CEPH250T PO
== END ==
LOC: M LAB REF 12:29
PROVIDERS: ATTEND Physician Assistant
DX: H60.90 Unspecified otitis externa, unspecified ear (principal)

== ENCOUNTER → 2025-04-26 | Outpatient (CLI) | payer BC | LOC: M LAB 10:07 | PROVIDERS: ATTEND Physician Assistant | DX: M25.50 Pain in unspecified joint (principal) ==

== ENCOUNTER → 2025-06-27 | Outpatient (CLI) | payer BC ==
[2025-06-27 15:48] LABS: BASO # 0.1 10^3/uL (0.0-0.2); BASO % 0.6 % (0.0-1.0); EOS # 0.1 10^3/uL (0.0-0.5); EOS % 0.7 % (0.0-3.0); LYMPH # 2.1 10^3/uL (1.5-5.0); LYMPH % 20.0 % (24.0-44.0); MONO # 0.9 10^3/uL (0.0-0.8); MONO % 8.9 % (2.0-8.0); NEUTROPHILS # 7.3 10^3/uL (1.5-8.5); NEUTROPHILS % 69.4 % (36.0-66.0); PLATELET COUNT, AUTOMATED 249 10^3/uL (150-450)
[2025-06-27 15:54] LABS: C REACTIVE PROTEIN QUANTITATIV 1.40 MG/DL (<1.0); RHEUMATOID FACTOR QUANT < 3.5 IU/ML (<14)
[2025-06-27 15:55] LABS: ALT/SGPT 32 U/L (7.0-40); AST/SGOT 25 U/L (<34); CALCIUM LEVEL 9.0 MG/DL (8.5-10.1); CARBON DIOXIDE LEVEL 28 MMOL/L (20-31); CHLORIDE LEVEL 102 MMOL/L (98-107); CHOLESTEROL LEVEL 219 MG/DL (<200); CHOLESTEROL RISK RATIO 2.94 (<5); CREATININE FOR GFR 0.90 MG/DL (0.70-1.30); GLOMERULAR FILTRATION RATE > 90.0 (>60); LDL CHOLESTEROL 125.0 MG/DL (<100); NON-HDL-C 144.6 MG/DL; POTASSIUM SERUM 4.4 MMOL/L (3.5-5.1); SODIUM LEVEL 140 MMOL/L (136-145); TRIGLYCERIDES LEVEL 98 MG/DL (<150)
[2025-06-27 15:59] LABS: CPK CREATINE PHOSPHOKINASE 67 U/L (46-171)
[2025-06-27 16:30] LABS: ESTIMATED AVERAGE GLUCOSE 103.0 MG/DL (60-110)
[2025-06-28 18:08] LABS: ANA TITER 2 1:80 titer (NEGATIVE)
== END ==
LOC: M PLALAB 11:36
PROVIDERS: ATTEND Internal Medicine
DX: M25.549 Pain in joints of unspecified hand (principal); F10.10 Alcohol abuse, uncomplicated